=== PATIENT | male | born 2000 | race Two or more races ===

== ENCOUNTER 2023-11-06 02:42 | Emergency (ER) | payer MEDICAID ==
[~2023-11-06] VITALS: Ht 172.7 cm; Wt 78.0 kg
[2023-11-06 03:23] VITALS: BP 139/74; TEMP 98.9; O2SAT 98
[2023-11-06] MEDS ORDERED: ASPIRIN 81 MG TAB.CHEW ONE (04:31)
[2023-11-06 04:33] LABS: BASOPHILS # (AUTO) 0.1 K/uL (0.0-0.2); BASOPHILS % (AUTO) 0.7 % (0.0-2.0); EOSINOPHILS # (AUTO) 0.1 K/uL (0.0-0.7); HEMATOCRIT 46 % (39-51); LYMPHOCYTES # (AUTO) 4.4 K/uL (0.8-4.8); LYMPHOCYTES % (AUTO) 54.1 % (20.0-44.0); MEAN CORPUSCULAR HEMOGLOBIN 32 PG (26.0-33.0); MEAN CORPUSCULAR HGB CONC 35 g/dl (31.0-36.0); MEAN CORPUSCULAR VOLUME 91 fL (80-96); MONOCYTES # (AUTO) 0.5 K/uL (0.1-1.30); MONOCYTES % (AUTO) 6.6 % (2.0-12.0); NEUTROPHILS # (AUTO) 3.1 K/uL (1.8-8.9); NEUTROPHILS % (AUTO) 37.6 % (43.0-81.0); PLATELET COUNT (AUTO) 206 K/uL (150-450); RED BLOOD CELL COUNT(AUTO) 5.05 MIL/uL (4.5-6.0); RED CELL DISTRIBUTION WIDTH 13.3 % (11.5-15.0); WHITE BLOOD COUNT (AUTO) 8.2 K/uL (4.3-11.0)
[2023-11-06] MEDS: ASPIRIN 81 MG TAB.CHEW PO ONE (04:33)
[2023-11-06] MEDS ORDERED: KETOROLAC TROMETHAMINE 15 MG/ML VIAL ONE (04:36)
[2023-11-06] MEDS: KETOROLAC TROMETHAMINE 15 MG/ML VIAL IV ONE (04:39)
[2023-11-06 04:44] LABS: CARBON DIOXIDE 25 mmol/L (21-32); CHLORIDE 105 mmol/L (98-107); CREATININE 0.9 mg/dL (0.6-1.3); GLUCOSE 100 mg/dL (74-106); POTASSIUM 3.5 mmol/L (3.5-5.1); SODIUM SERUM 140 mmol/L (136-145); UREA NITROGEN, BLOOD 8 mg/dL (7-18)
[2023-11-06] MEDS ORDERED: KETO10TA2 PO (05:31)
== END 2023-11-06 05:35 | disposition home or self-care (01) ==
LOC: ER 02:47
DX: R07.89 Other chest pain (principal)
CPT/HCPCS: 36415; 71045-TC; 80048-TC; 84484-TC; 85025-TC; J1885

== ENCOUNTER 2024-11-26 21:44 | Emergency (ER) | payer MEDICAID ==
[~2024-11-26] VITALS: Ht 172.7 cm; Wt 90.7 kg
[~2024-11-26 21:44] MED LIST: KETO10TA2 PO
[2024-11-27] MEDS: LIDOCAINE /MPF 1% VIAL 5 ML VIAL IJ ONE (00:55)
[2024-11-27 01:26] VITALS: BP 124/73; TEMP 98.3; O2SAT 99
== END 2024-11-27 01:27 | disposition home or self-care (01) ==
LOC: ER 21:47
DX: S51.811A Laceration without foreign body of right forearm, initial encounter (principal); Z79.899 Other long term (current) drug therapy; W25.XXXA Contact with sharp glass, initial encounter; Y93.89 Activity, other specified; Y92.89 Other specified places as the place of occurrence of the external cause; Y99.8 Other external cause status